=== PATIENT | male | born 1960 | race Caucasian/White ===

== ENCOUNTER → 2019-01-19 | Outpatient (CLI) | payer BC ==
--- NOTE | 2019-01-20 10:06 | PCVCIMAG ---
APPROVED REPORT Study performed: 01/19/2019 15:27:41 EXAM: Comprehensive 2D, Doppler, and color-flow Echocardiogram Patient Location: Echo lab Room #: 2Status: routine BSA: 2.14 HR: 60 bpm Rhythm: NSR Other Information Study Quality: Adequate Risk Factors: Cardiac Risk Factors: HTN, Hyperlipidemia Indications Murmur Hypertension/HDD 2D Dimensions IVSd: 11.84 (7-11mm)LVOT Diam: 22.34 (18-24mm) LVDd: 50.58 mm PWd: 9.76 (7-11mm)Ascending Ao: 29.26 (22-36mm) LVDs: 27.51 (25-40mm) Left Atrium: 24.69 (27-40mm) Aortic Root: 30.53 mm LV Single Plane 4CH: 53.11 % LV Single Plane 2CH: 62.81 % Biplane EF: 59.8 % Volumes Left Atrial Volume (Systole) Single Plane 4CH: 51.74 mLSingle Plane 2CH: 23.31 mL Biplane LA Volume: 38.00 mLLA ESV Index: 18.00 mL/m2 Aortic Valve AoV Peak Rinku.: 1.69 m/s AO Peak Gr.: 11.42 mmHg Mitral Valve E/A Ratio: 1.2 MV Decel. Time: 168.97 ms MV E Max Rinku.: 0.82 m/s MV A Rinku.: 0.71 m/s IVRT: 83.04 ms TDI E/Lateral E': 5.86E/Medial E': 9.11 Medial E' Rinku.: 0.09 m/s Lateral E' Rinku.: 0.14 m/s Pulmonary Valve PV Peak Rinku.: 1.15 m/sPV Peak Gr.: 5.25 mmHg Pulmonary Vein P Vein S: 0.67 m/sP Vein A: 0.30 m/s P Vein D: 0.48 m/sP Vein A Dur.: 110.7 msec P Vein S/D Ratio: 1.40 Tricuspid Valve TR Peak Rinku.: 2.28 m/s TR Peak Gr.: 20.88 mmHg TV Vmax: 0.75 m/sPA Pressure: 28.00 mmHg Left Ventricle The left ventricle is normal size. There is normal LV segmental wall motion. Borderline concentric left ventricular hypertrophy. There is no ventricular septal defect visualized. Left ventricular systolic function is normal. The left ventricular ejection fraction is within the normal range. LVEF is 55-60%. The left ventricular diastolic function is normal. Right Ventricle The right ventricle is normal size. The right ventricular systolic function is normal. Atria The left atrium size is normal. Interatrial septum is intact without evidence of ASD or PFO. The right atrium size is normal. Aortic Valve Aortic valve is trileaflet. No aortic regurgitation is present. There is no aortic valvular stenosis. Mitral Valve The mitral valve is normal in structure. There is no mitral valve regurgitation noted. No evidence of mitral valve stenosis. Tricuspid Valve The tricuspid valve is normal in structure. Trace tricuspid regurgitation. No pulmonary hypertension is seen. Pulmonic Valve The pulmonary valve is normal in structure. Mild pulmonic regurgitation. Great Vessels The aortic root is normal in size. The ascending aorta is normal in size. Aortic arch is normal in caliber. IVC is normal in size and collapses >50% with inspiration. Pericardium There is no pericardial effusion. There is no pleural effusion. <Conclusion> The left ventricle is normal size. LVEF is 55-60%. The left atrium size is normal. Interatrial septum is intact without evidence of ASD or PFO. Aortic valve is trileaflet. The mitral valve is normal in structure. The tricuspid valve is normal in structure. Trace tricuspid regurgitation. No pulmonary hypertension is seen. There is no pericardial effusion. There is no pleural effusion.
== END | disposition home or self-care (01) ==
LOC: PCVCIMAG 15:36
PROVIDERS: ATTEND Internal Medicine
DX: I37.1 Nonrheumatic pulmonary valve insufficiency (principal); R01.1 Cardiac murmur, unspecified; I10 Essential (primary) hypertension; E78.5 Hyperlipidemia, unspecified
CPT/HCPCS: 93306